=== PATIENT | male | born 1995 | race Caucasian/White ===

== ENCOUNTER 2018-12-17 12:08 | Emergency (ER) | payer MEDICAID, SELFPAY ==
[2018-12-17 12:19] VITALS: PULSE 99; RESP 18; TEMP 36.5; O2SAT 98
--- NOTE | 2018-12-17 12:36 | ED.GENADUL_ITS ---
Discharge Plan Disposition Patient Disposition: HOME Condition: Good Discharge Details Chief Complaint: Laceration Clinical Impression: Laceration Primary Care Provider: None,None ED Provider: Pierce Zaragoza Home Meds and New Rx's Prescriptions: No Action No Known Home Meds RF: 0 Discharge Instructions Instructions: Care For Your Stitches (ED), Laceration (ED) Additional Instructions: Please leave the dressing on for 24 hours, then you may remove and begin cleaning the wound at least twice a day with soap and water. Continue to apply antibiotic ointment. Do not directly soak the area. Watch for any signs of infection and return if any increasing redness, swelling, pain, drainage. Please return in 7 to 10 days to have your sutures removed. If you come to the ER it is free. If you notice any worsening of your symptoms, or any new symptoms such as vomiting, diarrhea, fever, chills, shortness of breath, chest pain, numbness, weakness, or fainting , please return immediately to the emergency department for reevaluation. Please follow up with your primary care provider as soon as possible for reassessment and reevaluation. As always, it was a pleasure participating in your medical care today. Discharge Data Discharge Date/Time-TO BE ENTERED AT DEPARTURE: 12/17/18 12:50 Medical Decision Making This is a 23-year-old male who presents for laceration to his right nondominant forearm. He was getting a deer, just cleaned his knife and then accidentally cut his forearm. The laceration itself is 1 cm in width, 2 simple interrupted sutures placed, 4-0 Ethilon sutures, and Dermabond, tetanus up-to-date. Patient tolerated procedure well. Discussed red flags for which to return, as well as plan for suture removal.I have extensively reviewed the treatment plan and discharge instructions with the patient. I have addressed all patient concerns at this time. The patient was made aware of what symptoms to monitor for that would warrant a return to the emergency department. Discussed the plan with the patient, they demonstrate verbal understanding and agreement with our assessment and plan at this time. HPI General Date/Time Provider Initiated Documentation: 12/17/18 12:21 . HPI Narrative: This is a 23-year-old male with no significant past medical history who presents today for evaluation of laceration to his right forearm. He is left-hand dominant. Patient states that he was getting a deer when the knife, after just being cleaned caught his right forearm. He denies any numbness or tingling. Tetanus status is up-to-date. He denies any difficulty or pain with moving. He has no other complaints at this time. Related Data Home Medications Medication Instructions Recorded Confirmed Unknown [No Known Home Meds] 10/10/17 12/17/18 Allergies Allergy/AdvReac Type Severity Reaction Status Date / Time No Known Allergies Allergy Unverified 12/17/18 12:23 General Stated Complaint: Laceration RED: 4 Review of Systems Review of Systems ROS Unobtainable: All systems reviewed & are unremarkable except as noted in HPI and below PFSH Social History Smoking/Tobacco Use Status: Current every day Drug use: Current Sobriety Do you feel safe at home: Yes Do you feel safe in your relationship?: Yes Exam Narrative Exam Narrative: 1.Const: Well-nourished, Well-developed, appearing stated age 2.Eyes: PERRL, no conjunctival injection, and symmetrical lids. 3.ENT: Atraumatic external nose and ears. Moist MM. Neck: Symmetric, trachea midline, No thyromegaly. 4.CVS: +S1/S2, No murmurs or gallops. Peripheral pulses 2+ and equal in all extremities. Brisk capillary refill in all extremities. 5.RESP: Unlabored respiratory effort. Clear to auscultation bilaterally. No wheezes rales or rhonchi 6.GI: Soft, Nontender/Nondistended, No hepatosplenomegaly. No guarding or re bound. 7.MSK: Normocephalic/Atraumatic, Extremities w/o deformity or ttp No cyanosis or clubbing, Normal movement of all extremities 8.Skin: Warm, Dry. No rashes or lesions. Small 1 cm linear laceration to the right forearm, no evidence of deep tissue involvement, small amount of subcutaneous fat noted. No active bleeding. Distal to the injury site there is no evidence of neurovascular musculoskeletal or tendinous deficit distal to the injury site. 9.Neuro: adult ministries director II-XII grossly intact. Sensation grossly intact, no focal neurologic deficits. 10.Psych: (AAO) x3. Appropriate mood and affect Course Vital Signs Vital signs: Vital Signs Temperature 36.5 C 12/17/18 12:19 Pulse 99 H 12/17/18 12:19 Respiratory Rate 18 12/17/18 12:19 Pulse Oximetry 98 12/17/18 12:19 Temperature 36.5 C 12/17/18 12:19 Temperature Source Skin 12/17/18 12:19 Pulse 99 H 12/17/18 12:19 Respiratory Rate 18 12/17/18 12:19 Respiratory Effort Non-Labored 12/17/18 12:21 Blood Pressure Position Sitting 12/17/18 12:19 Pulse Oximetry 98 12/17/18 12:19 Oxygen Delivery Method Room Air 12/17/18 12:19 Oxygen Flow Rate 0 12/17/18 12:19 Pain Level 2 12/17/18 12:21 Procedures Laceration Laceration 1: Site: upper extremity Side (If applicable): right Size (cm): 1 Description: linear Depth: simple, single layer Local Anesthetic: Lidocaine 1% and with Epi Amount of anesthesia used (mL): 3 Pre-repair: wound explored, irrigated extensively and deep structures intact Skin layer closed with: nylon Size (cm): 4-0 Number of sutures: 2 Technique: simple, interrupted
== END 2018-12-17 12:50 | disposition home or self-care (01) ==
LOC: ER 13:22
PROVIDERS: Emergency Provider Student in an Organized Health Care Education/Training Program
DX: S51.811A Laceration without foreign body of right forearm, initial encounter (principal); W26.0XXA Contact with knife, initial encounter
CPT/HCPCS: 12001

== ENCOUNTER 2019-12-04 11:23 | Emergency (ER) | payer BC, MEDICAID, SELFPAY ==
[2019-12-04 11:28] VITALS: BP 156/78; PULSE 90; RESP 16; TEMP 36.6; O2SAT 97
--- NOTE | 2019-12-04 12:15 | W.ED.GENAD ---
Discharge Plan Disposition Patient Disposition: HOME Condition: Serious Discharge Details Chief Complaint: RashLesion Clinical Impression: Abscess of groin, left Primary Care Provider: Sully Lane ED Provider: Dennys Israel Home Meds and New Rx's Prescriptions: New sulfamethoxazole-trimethoprim [Bactrim DS] 800-160 mg tablet 1 tab PO BID Qty: 13 RF: 0 Continued clonidine HCl 0.1 mg tablet 0.1 mg PO DAILY RF: 0 naltrexone 50 mg tablet 50 mg PO PRN PRNRF: 0 disulfiram 500 mg tablet 500 mg PO PRN PRNRF: 0 Vivitrol 380 mg suspension,extended rel recon 380 mg IM .Q 28 DAYS RF: 0 Discharge Instructions Instructions: Abscess (ED) Additional Instructions: Please follow-up with dermatology. Call for an appointment. Dr. Dinh is a local route relief driver. His phone number is [phone]. Please contact your primary care physician to arrange follow-up. Return to the ER for any worsening or new concerning symptoms. Referrals: William Dinh MD [ CONSULTING PHYSICIAN] - Sully Lane [Primary Care Provider] - Medical Decision Making 24-year-old male here with left groin abscess. Patient has had chronic intermittent abscesses of the groin and axilla. Consider hidradenitis of vertebral. Abscess was anesthetized with let and local injection of lidocaine. Abscess incision and drainage performed without complication. Wound culture sent. Will initiate treatment with Bactrim. Patient was advised to follow-up with dermatology and to return for any worsening or new concerning symptoms. HPI General Mode of arrival: ambulatory. Date/Time Provider Initiated Documentation: 12/04/19 11:37. Limitations to Documentation: no limitations. Information obtained by: patient. HPI Narrative: 24-year-old male here with left groin inflammation. Patient notes 3 days of worsening left groin swelling. He states that he thinks he has a boil there that he has tried to pop and had minimal discharge. He has had prior boils in his groin and armpits. He has not seen a route relief driver. No associated fever. There is some associated redness in the area. Inflammation is moderate with no modifiers. Related Data Home Medications Medication Instructions Recorded Confirmed Vivitrol 380 mg IM .Q 28 DAYS 12/04/19 12/04/19 clonidine HCl 0.1 mg PO DAILY 12/04/19 12/04/19 disulfiram 500 mg PO PRN PRN 12/04/19 12/04/19 naltrexone 50 mg PO PRN PRN 12/04/19 12/04/19 sulfamethoxazole-trimethoprim 1 tab PO BID #13 tab 12/04/19 [Bactrim DS] Previous Rx's Medication Instructions Recorded sulfamethoxazole-trimethoprim 1 tab PO BID #13 tab 12/04/19 [Bactrim DS] Allergies Allergy/AdvReac Type Severity Reaction Status Date / Time No Known Allergies Allergy Unverified 12/04/19 11:31 General Stated Complaint: RashLesion RED: 3 Review of Systems All systems reviewed & are unremarkable except as noted in HPI and below Constitutional Constitutional: Denies fever(s) Integumentary/Breasts Skin/Breast: Reports as per HPI [facility] Social History Smoking/Tobacco Use Status: Current every day Alcohol Intake: former Drug use: Occasionally Substance use type: marijuana Details: 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 Do you feel safe at home: Yes Do you feel safe in your relationship?: Yes Exam Const General: cooperative and no acute distress HENMT Mouth: moist mucous membranes Eyes Conjunctivae: normal conjunctivae Sclera: normal sclerae Resp Auscultation: clear to auscultation bilaterally, no rales, no rhonchi and no wheezes Cardio Jugular venous pressure: no JVD Rate: regular rate and not tachycardic Rhythm: regular rhythm GI Palpation: soft, not firm, no guarding, no masses, not rigid and nontender Skin Other: Erythema surrounding 2 cm abscess left groin, tender to palpation, no discharge Neuro General: patient alert, patient awake and tone normal Extrem General: no edema Course Vital Signs Vital signs: Vital Signs Temperature 36.6 C 12/04/19 11:28 Pulse 90 12/04/19 11:28 Respiratory Rate 16 12/04/19 11:28 Blood Pressure 156/78 H 12/04/19 11:28 Pulse Oximetry 97 12/04/19 11:28 Temperature 36.6 C 12/04/19 11:28 Temperature Source Skin 12/04/19 11:28 Pulse 90 12/04/19 11:28 Respiratory Rate 16 12/04/19 11:28 Respiratory Effort Non-Labored 12/04/19 11:30 Blood Pressure 156/78 H 12/04/19 11:28 Blood Pressure Position Sitting 12/04/19 11:28 Pulse Oximetry 97 12/04/19 11:28 Oxygen Delivery Method Room Air 12/04/19 11:28 Oxygen Flow Rate 0 12/04/19 11:28 Pain Level 6 12/04/19 11:28 Procedures Abscess I/D Site: Other (lt groin) Side (if applicable): Left Local Anesthetic: Lidocaine 1% Amount of anesthesia used (mL): 3 Technique: Incised with #11 Blade Amount of fluid expressed (mL): 3 Irrigation: Yes Complications: Pain
[2019-12-04] MEDS: Sulfameth/Trimeth DS TAB 1 TAB PO (12:34)
[2019-12-04] MEDS: Lidocaine/Epinephri/Tetracaine Topical Gel 3 ML TP (12:34)
[2019-12-04] MEDS: Lidocaine 1% Multi-Dose 50 ML VIAL IJ (12:48)
== END 2019-12-04 13:24 | disposition home or self-care (01) ==
LOC: ER 13:20
PROVIDERS: Emergency Provider Student in an Organized Health Care Education/Training Program; PCP Nurse Practitioner Family
DX: L02.214 Cutaneous abscess of groin (principal)
CPT/HCPCS: 10060; 87070; 87205

== ENCOUNTER 2023-06-16 18:01 | Emergency (ER) | payer BC, SELFPAY ==
[2023-06-16 18:04] VITALS: BP 221/74; PULSE 102; RESP 20; TEMP 37.2; O2SAT 98
--- NOTE | 2023-06-16 18:12 | ED.GENADUL_ITS ---
Discharge Plan Disposition Patient Disposition: Home Condition: Stable Discharge Details Clinical Impression: Left hydrocele Primary Care Provider: Brett Jain ED Provider: Pierce Mccoy Home Meds and New Rx's Prescriptions: New doxycycline hyclate 100 mg capsule 100 mg PO BID 10 Days Qty: 20 0RF Discharge Instructions Instructions: Doxycycline (By mouth), Epididymitis (ED), Hydrocele (ED), Testicle Pain (ED) Additional Instructions: You were seen in the emergency department for your left testicular pain for the past week. There is a complex loculated fluid collection around your left testicle, I am treating empirically for a wide variety of possible bacterial infections, I am arranging follow-up for you should you have concerns with our urologist here Dr. Mattson. I have sent the remainder of your antibiotic regimen to [facility] in [place], the rest is doxycycline for 10 days twice a day. Make sure to finish all of the antibiotic. Please use therapeutic dosing of Tylenol (acetamenophen) & Advil (ibuprofen) in an alternating fashion as follows: Take 1000mg of Tylenol every 6 hours without missing doses- that is 4 times per day. Mcc in between the Tylenol dosings, take 400-600mg of Advil also on a 6 hour schedule, that is also 4 times per day. The daily maximum dosing of Tylenol is 4000mg, and the daily maximum dosing of Advil is 2400mg. This is safe to do for weeks. Please note that some common cold medications & prescription pain medications may contain acetamenophen and you need to read OTC drug labels and factor that in to maximum daily dosings. You may get relief from formfitting underwear that help elevate your scrotum, please return to the ER at once for any severe increase in scrotal swelling especially with fever, redness of the scrotum, warmth to touch, discharge. Referrals: [facility] [Provider Group] Brett Jain, S[facility]INER [Primary Care Provider] - HPI General Date/Time Provider Initiated Documentation: 06/16/23 18:12 . HPI Narrative: 27 year-old male presents to ED today by POV/ambulating with his spouse with a chief complaint of L testicular pain with onset one week ago. 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 Severity is described as 5-6/10. Palliating factors include relief when immobile. Provoking factors include nothing specific. Events leading up to the incident/Associated Symptoms: Patient has received all normal childhood vaccinations. Patient not anticoagulated. Related Data Home Medications Medication Instructions Recorded Confirmed doxycycline hyclate 100 mg capsule 100 mg PO BID 10 days #20 caps 06/16/23 Previous Rx's Medication Instructions Recorded doxycycline hyclate 100 mg capsule 100 mg PO BID 10 days #20 caps 06/16/23 Allergies Allergy/AdvReac Type Severity Reaction Status Date / Time No Known Allergies Allergy Unverified 06/16/23 18:50 General Stated Complaint: Male Reproductive Problem RED: 4 Review of Systems All systems reviewed & are unremarkable except as noted in HPI and below Exam Narrative Exam Narrative: GENERAL APPEARANCE: Well-nourished, non-toxic, awake and alert, atraumatic, no acute distress. SKIN: Warm, pink, dry, intact, without rashes/lesions/ulcerations. HEAD: Normocephalic, atraumatic, normal hair distribution for gender/age. EYES: Pupils PERRLA, EOMs intact without nystagmus, normal conjunctiva, no exudates on lids/lashes. ENT: Nares patent, no circumoral cyanosis, no facial swelling NECK: Supple, trachea midline, painless cervical ROM. LUNGS/CHEST: Non-labored respirations, normal A/P diameter, symmetrical expansion, no chest wall deformity HEART (CV/PV): No peripheral edema, no JVD. ABDOMEN: Soft, non-distended, no guarding. : tender nodule at pole of L testicular, no pulsatile mass at inguinal canals bilat., cremasters intact bilaterally, no redness to touch, no swelling to scrotum, testicule mobile and soft, no skin changes. MSK: Normal ROM, no swelling/deformity to bilateral UEs or LEs, moving all extremities without weakness, no cyanosis, spine midline without tenderness, normal curvature. NEURO: Mental Status AAOx4 - alert to person, place, time, events No facial droop, no forehead involvement. Motor: No focal weakness - strength 5/5 in bilateral UEs and LEs, proximal and distal, symmetric. Sensory: sensation intact to light touch globally. Gait normal: patient ambulated without ataxia into ED room. PSYCH: euthymic, cooperative, pleasant, appropriate speech Course Vital Signs Vital signs: Vital Signs Temperature 37.2 C 06/16/23 18:04 Pulse 102 H 06/16/23 18:04 Respiratory Rate 20 06/16/23 18:04 Blood Pressure 221/74 H 06/16/23 18:04 Pulse Oximetry 98 06/16/23 18:04 Temperature 37.2 C 06/16/23 18:04 Pulse 102 H 06/16/23 18:04 Respiratory Rate 20 06/16/23 18:04 Blood Pressure 221/74 H 06/16/23 18:04 Pulse Oximetry 98 06/16/23 18:04 Pain Level 5 06/16/23 18:04 Medical Decision Making This dictation utilizes [id number] dictation software and may contain unedited grammatical errors. 27 y/o M presents to ED today with a chief complaint of L testicular pain for one week, feels a small nodule at one pole of the L testicular that is tender to touch and with movement, denies new sexual partners, denies redness/sores/warmth to touch, the L testicle is mobile, does perform heavy lifting and recently recovered from a flu-like illness with significant coughing fits around the time this presented last week. Patient states he does have his normal childhood vaccinations, denies parotid swelling during his recent URI. Patients' medical history: States that he was overweight in the past but has been trying to eat better, has known hypertension that is untreated but has been trying to make lifestyle changes. Family and social history: Works at [employer], significant heavy lifting. Pertinent exam findings / vital signs include : tender nodule at pole of L testicular, no pulsatile mass at inguinal canals bilat., cremasters intact bilaterally, no redness to touch, no swelling to scrotum, testicule mobile and soft, no skin changes.. Differential / pathologies of concern include appendix torsion of testicle, less likely testicular torsion, epididymitis/orchitis, hernia, not Tushar's gangrene. Diagnostic studies of: -CBC, CMP, CRP, NG/GC Dirty Urine Sample, UA, RPR, HIV Ab, U/S Scrotum -U/S Scrotum shows no torsion, some free fluid in L scrotum, R epididymal cyst- somewhat complex and loculated L hydrocele- treating empirically for epididymitis/orchitis. -CBC benign, mild leukocytosis, no anion gap, no L shift -CMP benign -UA no UTI -CRP neg -Further studies pending, send-outs. Interventions of: -500mg IM Ceftriaxone, first dose doxy given here > 10 day outpatient Rx PO doxycycline. ED Course/Assessment/Plan: 27-year-old male presents with left testicular pain for the past week, feels a tender nodule at 1 pole of his left testicle, no signs of hernia on physical exam, scrotal ultrasound shows a complex and loculated left hydrocele- due to this loculation/complexity, I counseled him that we would likely treat empirically for bacterial infection I could place him on the list for follow-up with urology. The patient was comfortable with this disposition, RPR and gonorrhea chlamydia dirty urine sample pending at time of discharge. Recommend strict return criteria for increasing scrotal swelling with redness and warmth to touch. Findings not consistent with testicular torsion, UTI, sepsis. Disposition of Left Hydrocele. Patient verbalized understanding of the plan and return to ED criteria and engaged in shared decision making. Medical Records Medical records reviewed: Yes I reviewed the patient's medical records. Imaging Data Radiologic Study: Attestation: I personally reviewed and interpreted this imaging study as follows: Imaging: Ultrasound Radiologist's impression: Exam: US Scrotum Exam date and time: 06/16/2023 6:44 PM Age: 27 years old Clinical indication: Scrotum pain TECHNIQUE: Imaging protocol: Real-time ultrasound of the scrotum and contents with color Doppler and image documentation. COMPARISON: No relevant prior studies available. FINDINGS: Right testicle: Normal. Measures 3.4 x 2.2 x 2.8 cm. No mass. No torsion. Normal vascular flow. Left testicle: Normal. Measures 3.9 x 1.9 x 3.1 cm. No mass. No torsion. Normal vascular flow. Epididymides: Right epididymal cyst measures 0.5 cm. Left epididymis unremarkable. Scrotum/soft tissues: Left hydrocele measures 2.3 x 0.4 x 1.6 cm which appears complex and somewhat loculated. IMPRESSION: 1. Testicles normal. 2. Complex and somewhat loculated left hydrocele. 3. Right epididymal head cyst measures 0.5 cm. Dictated and Authenticated by: Theresa Contreras MD. Ordering:ALEXANDRU Pelayo MD Lab Data Lab results reviewed: Yes I reviewed the patient's lab results. Labs: Laboratory Tests Range/Units 06/16/23 06/16/23 18:40 19:45 WBC (4.4-10.8) 10^3/uL 11.42 H RBC (4.36-5.78) 10^6/uL 4.94 Hgb (13.5-17.5) g/dL 14.8 Hct (40.0-50.0) % 42.8 MCV (80-95) fL 87 MCH (27.0-33.0) pg 30.0 MCHC (32.0-36.0) % 34.6 RDW (11.8-14.1) % 12.2 Plt Count (130-400) 10^3/uL 339 MPV (8.0-11.0) fL 9.1 Immature Gran % 0.3 Neutrophils % 71.9 Lymphocytes % 19.3 Monocytes % 7.0 Eosinophils % 1.1 Basophils % 0.4 Nucleated RBC % (0.0-0.3) % 0.0 Absolute Neutrophils (1.2-6.7) 10^3/uL 8.21 H Absolute Lymphocytes (1.2-3.4) 10^3/uL 2.20 Absolute Monocytes (0.1-0.8) 10^3/uL 0.80 Absolute Eosinophils (0.0-0.7) 10^3/uL 0.13 Absolute Basophils (0.0-0.2) 10^3/uL 0.05 Sodium (136-145) mmol/L 142 Potassium (3.5-5.1) mmol/L 3.9 Chloride (98-107) mmol/L 103 Carbon Dioxide (21.0-32.0) mmol/L 26.5 Anion Gap (3-11) mmol/L 12.5 H BUN (7-18) mg/dL 15 Creatinine (0.70-1.30) mg/dL 0.8 Est GFR (CKD-EPI 2020) (mL/min/1.73m2) 124.40 Glucose (74-106) mg/dL 95 Calcium (8.5-10.1) mg/dL 9.4 Total Bilirubin (0.2-1.0) mg/dL 0.7 AST (15-37) U/L 34 ALT (16-63) U/L 48 Alkaline Phosphatase (46-116) U/L 56 C-Reactive Protein (<or=0.5) mg/dL < 0.50 Total Protein (6.4-8.2) g/dL 7.9 Albumin (3.4-5.0) g/dL 4.7 Urine Color (Yellow) Yellow Urine Clarity (Clear) Clear Urine pH (5-8) 6.0 Ur Specific Beggs (1.005-1.025) 1.020 Urine Protein (Neg-Trace) mg/dL Negative Urine Ketones (Negative) mg/dL Negative Urine Blood (Negative) Negative Urine Nitrite (Negative) Negative Urine Bilirubin (Negative) Negative Urine Urobilinogen (Up to 0.2) mg/dL 0.2 Ur Leukocyte Esterase (Negative) Negative Urine Glucose (Negative) mg/dL Negative Quality:SDOH Health Related Social Needs: No Data to Display PFSH All Active Problems (Updated 06/16/23 @ 19:38 by MERCEDEZ Lawson) Left hydrocele (Acute) Social History Smoking/Tobacco Use Status: Current every day Tobacco Type: cigarettes Smoking risk assessment performed?: Yes Alcohol Intake: former Drug use: Occasionally Substance use type: marijuana Details: 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
--- NOTE | 2023-06-16 18:30 | DI.US_ITS ---
Exam(s) US SCROTUM EXAM: US SCROTUM CLINICAL HISTORY: L testicular pain, torsion r/o vs orchitis/epididy. TECHNIQUE: Scrotal ultrasound performed using grayscale, color-flow and spectral Doppler analysis. COMPARISON: No exams were available for comparison FINDINGS: RIGHT TESTICLE: 3.4 x 2.2 x 2.8 cm Echogenicity: Normal. Contour: Smooth. Mass: None seen. Microlithiasis: None. Hydrocele: None. Varicocele: None. Hernia: No peristalsing bowel loop identified. Epididymis: 5 millimeter epididymal head cyst. Scrotum: Normal. LEFT TESTICLE: 3.9 x 1.9 x 3.1 cm Echogenicity: Normal. Contour: Smooth. Mass: None seen. Microlithiasis: None. Hydrocele: Hydrocele with largest pocket measured at 2.3 x 0.4 x 1.6 cm. Varicocele: None. Hernia: No peristalsing bowel loop identified. Epididymis: Normal. Scrotum: Normal. DOPPLER: Color: Symmetric and uniform, no hyperemia. Duplex: Bilateral testicular arterial waveforms visualized. IMPRESSION: Normal appearing bilateral testicles. No evidence of torsion. No evidence of epididymitis. Small left hydrocele. DATA REPOSITORY:
[2023-06-16 19:19] LABS: Bilirubin Negative (Negative); Blood Negative (Negative); Clarity Clear (Clear); Glucose Negative (Negative); Ketones Negative (Negative); Leukocyte Esterase Negative (Negative); Nitrite Negative (Negative); Urobilinogen 0.2 mg/dL (Up to 0.2)
--- NOTE | 2023-06-16 19:24 | DI.VRAD_ITS ---
PROCEDURE INFORMATION: Exam: US Scrotum Exam date and time: 06/16/2023 6:44 PM Age: 27 years old Clinical indication: Scrotum pain TECHNIQUE: Imaging protocol: Real-time ultrasound of the scrotum and contents with color Doppler and image documentation. COMPARISON: No relevant prior studies available. FINDINGS: Right testicle: Normal. Measures 3.4 x 2.2 x 2.8 cm. No mass. No torsion. Normal vascular flow. Left testicle: Normal. Measures 3.9 x 1.9 x 3.1 cm. No mass. No torsion. Normal vascular flow. Epididymides: Right epididymal cyst measures 0.5 cm. Left epididymis unremarkable. Scrotum/soft tissues: Left hydrocele measures 2.3 x 0.4 x 1.6 cm which appears complex and somewhat loculated. IMPRESSION: 1. Testicles normal. 2. Complex and somewhat loculated left hydrocele. 3. Right epididymal head cyst measures 0.5 cm. Dictated and Authenticated by: Theresa Contreras MD. Ordering:ALEXANDRU Pelayo MD
[2023-06-16] MEDS: Doxycycline Hyclate 100 MG CAP PO (19:53)
[2023-06-16] MEDS: cefTRIAXone 1 GM VIAL 0.5 GM IM (19:53)
[2023-06-16 19:54] LABS: Abs Immature Grans 0.03 10^3/uL (0.0-0.06); Absolute Basophil Count 0.05 10^3/uL (0.0-0.2); Absolute Eosinophil Count 0.13 10^3/uL (0.0-0.7); Absolute Neutrophil Count 8.21 10^3/uL (1.2-6.7); Basophils % 0.4; Eosinophils % 1.1; HCT 42.8 % (40.0-50.0); HGB 14.8 g/dL (13.5-17.5); Immature Grans % 0.3; Lymphocytes % 19.3; MCHC 34.6 % (32.0-36.0); MCV 87 fL (80-95); MPV 9.1 fL (8.0-11.0); Neutrophils % 71.9; Platelet Count 339 10^3/uL (130-400); RBC 4.94 10^6/uL (4.36-5.78); RDW 12.2 % (11.8-14.1); RDW-SD 38.6 fL; WBC 11.42 10^3/uL (4.4-10.8)
[2023-06-16 19:59] VITALS: PULSE 69; RESP 16; TEMP 36.4; O2SAT 97
[2023-06-16 20:10] LABS: ALT 48 U/L (16-63); AST 34 U/L (15-37); Albumin 4.7 g/dL (3.4-5.0); Alkaline Phosphatase 56 U/L (46-116); Anion Gap 12.5 mmol/L (3-11); BUN 15 mg/dL (7-18); Bilirubin, Total 0.7 mg/dL (0.2-1.0); C-Reactive Protein < 0.50 mg/dL (<or=0.5); CO2 26.5 mmol/L (21.0-32.0); CREATININE 0.8 mg/dL (0.70-1.30); Calcium 9.4 mg/dL (8.5-10.1); Chloride 103 mmol/L (98-107); Glucose 95 mg/dL (74-106); Potassium 3.9 mmol/L (3.5-5.1); Sodium 142 mmol/L (136-145); Total Protein 7.9 g/dL (6.4-8.2)
[2023-06-18 11:06] LABS: Syphilis Serology (RPR) Negative (Negative)
[2023-06-18 13:04] LABS: Chlamydia Result Negative (Negative); GC Result Negative (Negative)
== END 2023-06-16 19:59 | disposition home or self-care (01) ==
LOC: ER 19:41
PROVIDERS: Emergency Provider Physician Assistant
DX: N50.812 Left testicular pain (principal); N43.3 Hydrocele, unspecified
CPT/HCPCS: 80053; 87491; 87591; 96372; 99284; 76870; 81003; 85025; 86140; 86592; J0696